=== PATIENT | male | born 1985 | race Caucasian/White ===

== ENCOUNTER 2022-01-01 04:29 | Emergency (ER) | payer SELFPAY ==
[~2022-01-01] VITALS: Ht 172.7 cm; Wt 77.6 kg
[2022-01-01] MEDS ORDERED: SODIUM BICARBONATE 5 ML VIAL ONE (04:53)
[2022-01-01] MEDS ORDERED: LIDOCAINE 1%-EPI 1:100,000 20 ML VIAL ONE (04:54)
[2022-01-01] MEDS ORDERED: HYDR-4209 PO (04:59)
[2022-01-01] MEDS ORDERED: CEPH500T PO (04:59)
[2022-01-01] MEDS ORDERED: CEFTRIAXONE 1 G VIAL IM ONE (05:00)
[2022-01-01] MEDS ORDERED: SODIUM BICARBONATE 5 ML VIAL MC ONE (05:00)
[2022-01-01] MEDS ORDERED: LIDOCAINE 1%-EPI 1:100,000 20 ML VIAL IJ ONE (05:00)
[2022-01-01] MEDS ORDERED: CEFTRIAXONE 1 G VIAL ONE (05:08)
[2022-01-01] MEDS ORDERED: LIDOCAINE 1% INJ 50 ML MDV IJ ONE (05:08)
[2022-01-01] MEDS ORDERED: TDAP [DIPH/PERTUSSIS/TET] 0.5 ML VIAL IM ONE ×2 (05:12→05:30)
[2022-01-01] MEDS ORDERED: HYDROCODONE/APAP 10/325MG TABLET ONE (05:12)
[2022-01-01] MEDS ORDERED: ONDANSETRON 4 MG TAB.RAPDIS ONE (05:16)
[2022-01-01] MEDS ORDERED: ONDANSETRON 4 MG TAB.RAPDIS SL ONE (05:30)
[2022-01-01] MEDS ORDERED: HYDROCODONE/APAP 10/325MG TABLET PO ONE (05:30)
--- NOTE | 2022-01-01 07:04 | NUR ---
PT DISCAHRGED IN STABLE CONDITION. DISCHARGE PAPERWORK PROVIDED
[2022-01-01 07:05] VITALS: BP 121/72
== END 2022-01-01 06:58 | disposition home or self-care (01) ==
LOC: ER 04:35
DX: S31.811A Laceration without foreign body of right buttock, initial encounter (principal); Z88.0 Allergy status to penicillin; W26.0XXA Contact with knife, initial encounter; Y93.89 Activity, other specified; Y92.89 Other specified places as the place of occurrence of the external cause; Y99.8 Other external cause status
CPT/HCPCS: 12002; 90471; 90715; 96372; 99284; J0696; J3490 ×3; Q0162